=== PATIENT | male | born 1965 | race Asian ===

== ENCOUNTER 2021-09-30 11:07 | Day surgery (SDC) | payer OTHER, SELFPAY ==
[~2021-09-30] VITALS: Ht 165.1 cm; Wt 68.0 kg
[2021-09-30 11:07] VITALS: BP_SYST 142
[2021-09-30] MEDS ORDERED: DIPH-TET-PERTUS Vaccine 0.5 ML VIAL (ADACEL) I.M. ONE (11:15)
[2021-09-30] MEDS ORDERED: MORPHINE 4 MG INJ. 4 MG/ML VIAL IVP ONE ×2 (11:15→14:15)
[2021-09-30] MEDS ORDERED: ceFAZolin SODIUM 1 GM in D5W 50 ML IV ONE (11:15)
[2021-09-30] MEDS ORDERED: ceFAZolin SODIUM 1 GM VIAL ONE (11:50)
[2021-09-30] MEDS ORDERED: CEFAZOLIN 1 GM IVPB PREMIX 50 ML IV ONE ×2 (11:54→16:30)
[2021-09-30 15:16] LABS: BASOPHILS % (AUTO) 0.2 % (0.0-2.0); EOSINOPHILS % (AUTO) 0.3 % (0.0-4.0); HEMOGLOBIN 13.6 g/dL (14.0-18.0); LYMPHOCYTES # (AUTO) 1.3 K/uL (1.0-5.5); LYMPHOCYTES % (AUTO) 18.9 % (20.5-51.5); MEAN CORPUSCULAR HEMOGLOBIN 28 pg (27-31); MEAN CORPUSCULAR HGB CONC 33 % (32-36); MEAN CORPUSCULAR VOLUME 85 fL (79.0-98.0); MONOCYTES # (AUTO) 0.4 K/uL (0.0-1.0); MONOCYTES % (AUTO) 6.4 % (1.7-9.3); NEUTROPHILS # (AUTO) 5.2 K/uL (1.8-7.7); NEUTROPHILS % (AUTO) 74.2 % (40.0-70.0); PLATELET COUNT (AUTO) 182 K/uL (130-430); RED BLOOD CELL COUNT(AUTO) 4.82 MIL/uL (4.2-6.2); RED CELL DISTRIBUTION WIDTH 14.3 % (9.0-15.0)
[2021-09-30 15:35] LABS: CALCIUM 9.4 mg/dL (8.4-11.0); CREATININE 0.9 mg/dL (0.55-1.30); POTASSIUM 3.9 mmol/L (3.5-5.1)
[2021-09-30 15:42] LABS: ALBUMIN 3.8 g/dL (3.4-4.8); TOTAL BILIRUBIN 0.4 mg/dL (0.0-1.0)
[2021-09-30] MEDS ORDERED: BUPIVACAINE /PF 0.25% 30 ML VIAL INJ ONE (16:30)
[2021-09-30] MEDS ORDERED: LR 1,000 ML IV.SOLN IV ONE (16:30)
[2021-09-30] MEDS ORDERED: PROPOFOL 200MG/ 20ML VIAL (DIPRIVAN) IV ONE (16:30)
[2021-09-30] MEDS ORDERED: NS IRRIG SOLN 1000 ML IR ONE (16:30)
[2021-09-30] MEDS ORDERED: LIDOCAINE PF 2%, 200 MG/10 ML AMPUL.LUER (EPIDURAL) INJ ONE (16:30)
[2021-09-30] MEDS ORDERED: ONDANSETRON HCL 4 MG/2 ML VIAL IVP PRN (17:00)
[2021-09-30] MEDS ORDERED: METOCLOPRAMIDE HCL 10 MG/2 ML VIAL IVP PRN (17:00)
[2021-09-30] MEDS ORDERED: fentaNYL CITRATE/PF 100 MCG/2 ML AMP IVP PRN ×2 (17:00)
[2021-09-30 17:23] VITALS: BP_SYST 165
[2021-09-30] MEDS ORDERED: ONDANSETRON 4 MG ODT TAB PO PRN (18:15)
[2021-09-30] MEDS ORDERED: ACETAMINOPHEN 325 MG TABLET PO PRN (18:15)
[2021-09-30 19:00] LABS: PROTHROMBIN TIME 9.9 SECS (9.5-12.5)
[2021-09-30] MEDS ORDERED: HYDROcodone/ACETAMIN 5-325 MG TAB (NORCO/ VICODIN) ONE (19:05)
[2021-09-30] MEDS: HYDROcodone/ACETAMIN 5-325 MG TAB (NORCO/ VICODIN) PO PRN (19:10)
== END 2021-09-30 19:30 | disposition home or self-care (01) ==
LOC: SED 11:07 → SDS 18:42
PROVIDERS: ATTEND Orthopaedic Surgery
DX: S68.116A Complete traumatic metacarpophalangeal amputation of right little finger, initial encounter (principal); X58.XXXA Exposure to other specified factors, initial encounter; Y93.89 Activity, other specified; Y92.89 Other specified places as the place of occurrence of the external cause; Z79.01 Long term (current) use of anticoagulants; Y99.8 Other external cause status; Z79.899 Other long term (current) drug therapy
CPT/HCPCS: 26951; 36415; 73140; 80053; 82948; 82962; 85025; 85610; 85730; 87426; 88305; 88311; 90471; 90715; 93005; 96374; 96375; 99291; J0690; J2001; J2270; J2704; J3490; J7120